=== PATIENT | male | born 1950 | race Caucasian/White ===

== ENCOUNTER 2018-12-19 13:09 | Outpatient (CLI) | payer OTHER | END 2018-12-19 13:20 | disposition home or self-care (01) | LOC: SONOGRAMA 13:09 → MAMO-SONO 13:15 → SONOGRAMA 13:20 | DX: R97.20 Elevated prostate specific antigen [PSA] (principal); N40.0 Benign prostatic hyperplasia without lower urinary tract symptoms ==